=== PATIENT | male | born 1960 | race African-American/Black ===

== ENCOUNTER 2020-05-07 10:14 | Inpatient (IN) ==
[2020-05-07] MEDS ORDERED: SODIUM CHLORIDE 0.9% 1,000 ML IV STA (10:50)
[2020-05-07] MEDS ORDERED: ONDANSETRON 4 MG/2 ML VIAL IV STA ×2 (10:51→13:02)
[2020-05-07 11:06] LABS: Basophils % 0.2 % (0.0-0.8); Hematocrit 35.4 VOL% (42.0-52.0); Hemoglobin 12.7 GM/DL (14.0-18.0); Immature Granulocytes % 0.2 %; Immature Granulocytes Absolute 0.01 #; Lymphocytes # 0.7 10*3/uL (1.4-4.0); Lymphocytes % 16.7 % (21.2-54.2); Mean Corpuscular HGB Conc 35.9 GM/DL (32-36); Mean Corpuscular Volume 107.6 FL (87-102); Mean Platelet Volume 9.7 FL (9.6-12.0); Monocytes % 6.9 % (1.7-12.7); Platelet Count 125 T/CUMM (130-400); Red Blood Count 3.29 MC/CUMM (3.8-5.5); Red Cell Distribution Width 13.2 % (9.3-17.3); White Blood Count 4.2 T/CUMM (4-12)
[2020-05-07 11:25] LABS: Albumin 2.5 G/DL (3.4-5.0); Bilirubin,Total 2.5 MG/DL (0.2-1.0); Calcium 8.2 MG/DL (8.5-10.1); Osmolality,Calculated 269.1 MOS/KG (273-304); Total Protein 6.4 G/DL (6.4-8.3)
[2020-05-07 11:31] LABS: Hypochromasia 1+
[2020-05-07 11:32] LABS: Platelet Estimate Normal
[2020-05-07 11:33] LABS: Apearance,Urine CLEAR (Clear); Bilirubin,Urine Negative (Negative); Blood, Urine Small mg/dL (Negative); Glucose,Urine (UA) Negative (Negative); Ketones,Urine 80 mg/dL (Negative); Mucus,Urine Many /LPF (Occasional); Nitrite,Urine Negative (Negative); Protein,Urine 30 MG/DL; RBC,Urine 3 /HPF (0-4); Squamous Epithelial Cell,Urine Occasional /HPF (0-10); Urine Color Amber (Yellow); Urine Specific Gravity 1.027 (1.001-1.035); WBC,Urine 4 /HPF (0-6)
[2020-05-07] MEDS ORDERED: MORPHINE 4 MG/1 ML VIAL IV STA (13:02)
[2020-05-07] MEDS ORDERED: POTASSIUM CHLORIDE 20 MEQ TABLET PO STA (13:36)
[2020-05-07] MEDS ORDERED: POTASSIUM CHLORIDE RIDER 10 MEQ in PREMIX 1 EACH IV SCH (14:00)
[2020-05-07] MEDS ORDERED: ONDANSETRON 4 MG/2 ML VIAL IV PRN (14:11)
[2020-05-07] MEDS ORDERED: GLUCAGON 1 MG VIAL IM PRN (14:11)
[2020-05-07] MEDS ORDERED: MORPHINE 4 MG/1 ML VIAL IV PRN (14:11)
[2020-05-07] MEDS ORDERED: DEXTROSE 50% 25 GM/50 ML VIAL IV PRN (14:11)
[2020-05-07] MEDS ORDERED: POTASSIUM CHLORIDE 20 MEQ TABLET PO ONE (17:30)
[2020-05-07] MEDS: POTASSIUM CHLORIDE INJ 20 MEQ in LACTATED RINGERS 1,000 ML IV SCH (20:56)
[2020-05-07] MEDS: ENOXAPARIN 30 MG/0.3 ML SYRINGE SUBCUT SCH (20:57)
[2020-05-07] MEDS: NICOTINE 14 MG/24 HR PATCH TRANSDERM SCH (20:57)
[2020-05-08] MEDS: POTASSIUM CHLORIDE INJ 20 MEQ in LACTATED RINGERS 1,000 ML IV SCH ×3 (04:27→22:23)
[2020-05-08 05:45] LABS: Eosinophils # 0.1 10*3/uL (0.0-0.87); Eosinophils % 1.1 % (0.00-10.9); Hematocrit 32.4 VOL% (42.0-52.0); Immature Granulocytes % 0.4 %; Immature Granulocytes Absolute 0.02 #; Lymphocytes # 1.5 10*3/uL (1.4-4.0); Lymphocytes % 32.9 % (21.2-54.2); Mean Corpuscular Volume 105.5 FL (87-102); Mean Platelet Volume 10.5 FL (9.6-12.0); Monocytes % 9.7 % (1.7-12.7); Neutrophils % 55.9 % (38.7-73.9); Platelet Count 105 T/CUMM (130-400); Red Blood Count 3.07 MC/CUMM (3.8-5.5); Red Cell Distribution Width 13.1 % (9.3-17.3); White Blood Count 4.7 T/CUMM (4-12)
[2020-05-08 06:09] LABS: Calcium 8.4 MG/DL (8.5-10.1); Osmolality,Calculated 269.8 MOS/KG (273-304)
[2020-05-08 06:18] LABS: Hypochromasia 1+; Platelet Estimate Decreased
[2020-05-08 08:11] LABS: Albumin 2.2 G/DL (3.4-5.0); Bilirubin,Direct 0.82 MG/DL (0.0-0.20); Bilirubin,Indirect 1.4 MG/DL (0.0-1.0); Bilirubin,Total 2.2 MG/DL (0.2-1.0); Total Protein 5.5 G/DL (6.4-8.3)
[2020-05-08] MEDS: NICOTINE 14 MG/24 HR PATCH TRANSDERM SCH ×2 (09:36→09:41)
[2020-05-08] MEDS: FOLIC ACID INJ 1 MG in SYRINGE 1 EACH IV SCH (09:36)
[2020-05-08] MEDS: THIAMINE 200 MG/2 ML VIAL IV SCH (09:38)
[2020-05-08] MEDS: LOPERAMIDE 2 MG CAPSULE PO PRN (12:53)
[2020-05-08] MEDS: CHLORHEXIDINE 0.12% ORAL RINSE 60 ML BOTTLE SWISH/SPIT SCH ×2 (14:59→21:43)
[2020-05-08] MEDS: ENOXAPARIN 30 MG/0.3 ML SYRINGE SUBCUT SCH (21:46)
[2020-05-09 04:59] LABS: Basophils % 0.2 % (0.0-0.8); Eosinophils # 0.2 10*3/uL (0.0-0.87); Eosinophils % 4.9 % (0.00-10.9); Hematocrit 33.7 VOL% (42.0-52.0); Hemoglobin 12.1 GM/DL (14.0-18.0); Immature Granulocytes % 0.2 %; Immature Granulocytes Absolute 0.01 #; Lymphocytes # 1.8 10*3/uL (1.4-4.0); Lymphocytes % 40.9 % (21.2-54.2); Mean Corpuscular HGB Conc 35.9 GM/DL (32-36); Mean Platelet Volume 10.6 FL (9.6-12.0); Monocytes % 8.4 % (1.7-12.7); Neutrophils % 45.4 % (38.7-73.9); Platelet Count 113 T/CUMM (130-400); Red Blood Count 3.12 MC/CUMM (3.8-5.5); Red Cell Distribution Width 13.2 % (9.3-17.3); White Blood Count 4.3 T/CUMM (4-12)
[2020-05-09 05:12] LABS: Calcium 8.8 MG/DL (8.5-10.1); Osmolality,Calculated 268.8 MOS/KG (273-304)
[2020-05-09 05:17] LABS: Albumin 2.2 G/DL (3.4-5.0); Bilirubin,Direct 0.78 MG/DL (0.0-0.20); Bilirubin,Indirect 1.4 MG/DL (0.0-1.0); Bilirubin,Total 2.2 MG/DL (0.2-1.0); Total Protein 6.1 G/DL (6.4-8.3)
[2020-05-09 05:24] LABS: Hypochromasia 1+; Macrocytosis 1+; Target Cells Few
[2020-05-09 05:25] LABS: Platelet Estimate Decreased; Polychromasia Slight
[2020-05-09] MEDS: POTASSIUM CHLORIDE INJ 20 MEQ in LACTATED RINGERS 1,000 ML IV SCH ×2 (07:10→18:40)
[2020-05-09] MEDS: CHLORHEXIDINE 0.12% ORAL RINSE 60 ML BOTTLE SWISH/SPIT SCH ×2 (09:25→21:43)
[2020-05-09] MEDS: THIAMINE 200 MG/2 ML VIAL IV SCH (09:26)
[2020-05-09] MEDS: FOLIC ACID INJ 1 MG in SYRINGE 1 EACH IV SCH (09:27)
[2020-05-09] MEDS: NICOTINE 14 MG/24 HR PATCH TRANSDERM SCH (09:50)
[2020-05-09] MEDS ORDERED: MAGNESIUM SULF RIDER 2 GM in PREMIX 1 EACH IV PRN (10:44)
[2020-05-09] MEDS ORDERED: MAGNESIUM SULF RIDER 4 GM in PREMIX 1 EACH IV PRN (10:44)
[2020-05-09] MEDS: METOPROLOL TARTRATE 50 MG TABLET PO SCH ×2 (11:53→21:46)
[2020-05-09] MEDS: LOPERAMIDE 2 MG CAPSULE PO PRN (21:46)
[2020-05-09] MEDS: ENOXAPARIN 30 MG/0.3 ML SYRINGE SUBCUT SCH (21:46)
[2020-05-10 06:01] LABS: Eosinophils # 0.2 10*3/uL (0.0-0.87); Eosinophils % 4.3 % (0.00-10.9); Hematocrit 32.5 VOL% (42.0-52.0); Hemoglobin 11.5 GM/DL (14.0-18.0); Immature Granulocytes % 0.4 %; Immature Granulocytes Absolute 0.02 #; Lymphocytes # 1.7 10*3/uL (1.4-4.0); Lymphocytes % 34.3 % (21.2-54.2); Mean Corpuscular HGB Conc 35.4 GM/DL (32-36); Mean Corpuscular Volume 109.8 FL (87-102); Mean Platelet Volume 11.2 FL (9.6-12.0); Monocytes % 7.8 % (1.7-12.7); Neutrophils % 53.2 % (38.7-73.9); Platelet Count 121 T/CUMM (130-400); Red Blood Count 2.96 MC/CUMM (3.8-5.5); Red Cell Distribution Width 13.1 % (9.3-17.3); White Blood Count 4.9 T/CUMM (4-12)
[2020-05-10 06:17] LABS: Calcium 8.9 MG/DL (8.5-10.1); Osmolality,Calculated 268.8 MOS/KG (273-304)
[2020-05-10] MEDS: POTASSIUM CHLORIDE INJ 20 MEQ in LACTATED RINGERS 1,000 ML IV SCH ×2 (06:45→07:30)
[2020-05-10] MEDS ORDERED: THIAMINE 100 MG TABLET PO SCH (09:00)
[2020-05-10] MEDS ORDERED: FOLIC ACID 1 MG TABLET PO SCH (09:00)
[2020-05-10] MEDS: METOPROLOL TARTRATE 50 MG TABLET PO SCH (09:05)
[2020-05-10] MEDS: NICOTINE 14 MG/24 HR PATCH TRANSDERM SCH (09:30)
[2020-05-10] MEDS: CHLORHEXIDINE 0.12% ORAL RINSE 60 ML BOTTLE SWISH/SPIT SCH (09:30)
[2020-05-10 16:34] VITALS: BP 144/107
== END 2020-05-10 17:10 | disposition home or self-care (01) | DRG 440 ==
LOC: N.ED 10:14 → N.EDINP 14:11 → N.3E 18:22
PROVIDERS: ADMIT Internal Medicine Geriatric Medicine; ATTEND Internal Medicine Geriatric Medicine